=== PATIENT | female | born 1995 | race American Indian/Alaskan Native ===

== ENCOUNTER 2017-10-27 | Emergency (ER) | payer SELFPAY ==
[2017-10-27 01:48] VITALS: BP 113/74
[2017-10-27] MEDS ORDERED: TYLENOL #3 PO ONE (04:18)
[2017-10-27 05:01] LABS: Amorphous Crystals,Urine 2+; Bilirubin,Urine NEG (Negative); Blood,Urine NEG (Negative); Color,Urine Yellow (Yellow); Mucus,Urine 1+ /HPF; Nitrite,Urine NEG (Negative); Protein,Urine <15 mg/dL mg/dL (Negative)
[2017-10-27 05:02] LABS: HCG Qualitative,Urine Negative (Negative)
[2017-10-27] MEDS ORDERED: DELTASONE PO ONE (05:28)
--- NOTE | 2017-10-27 05:46 | Emergency Department Report ---
HPI - General Chief Complaint: Back Pain/Injury Time Seen by Provider: 10/27/17 04:18 - HPI HPI: Patient is a 22-year-old female with no prior medical history presents ED complaining of low back pain. Patient states she's had a history of chronic back pain ever since December 2016 where she got her epidural from her delivery of her child. Patient states intermittently she gets low back pain and spasms. Patient states that this episode of spasm started today while she was at work. She states she had significant work has the pain was unbearable. Patient states localized to right back region. Patient did not sustain any injuries or trauma to the back or fall. She denies suicidal seizures/nausea or vomiting this abdominal pain/chest pain/ dysuria or any other problems ED Past Medical Hx - Past Medical History Previous Medical History?: No - Surgical History Past Surgical History?: No - Social History Smoking Status: Current Every Day Smoker Substance Use Type: Alcohol - Medications Home Medications: Home Medications Medication Instructions Recorded Confirmed Last Taken Type Cyclobenzaprine [Flexeril] 10 mg PO QHS PRN #20 tablet 10/27/17 Unknown Rx Meloxicam [Mobic] 7.5 mg PO QDAY #20 tablet 10/27/17 Unknown Rx ED Review of Systems ROS: Stated complaint: BACK PAIN Other details as noted in HPI Constitutional: denies: chills, fever Eyes: denies: eye pain, eye discharge, vision change ENT: denies: ear pain, throat pain Respiratory: denies: cough, shortness of breath, wheezing Cardiovascular: denies: chest pain, palpitations Endocrine: no symptoms reported Gastrointestinal: denies: abdominal pain, nausea, diarrhea Genitourinary: denies: urgency, dysuria, discharge Musculoskeletal: myalgia. denies: back pain, joint swelling, arthralgia Skin: denies: rash, lesions Neurological: denies: headache, weakness, paresthesias Psychiatric: denies: anxiety, depression Hematological/Lymphatic: denies: easy bleeding, easy bruising Physical Exam - Physical Exam Vital Signs: Vital Signs 10/27/17 01:43 Temperature 97.8 F Pulse Rate 77 Respiratory 18 Rate Blood Pressure 113/74 O2 Sat by Pulse 99 Oximetry Physical Exam: GENERAL: Alert and oriented x3, no apparent distress, Normal Gait, atraumatic. HEAD: Head is normocephalic and a-traumatic. NECK: Supple. Non edematous, No carotid bruits. No lymphadenopathy or thyromegaly. No C-spine tenderness LUNGS: Symetrical with respiration, No wheezing, no rales or crackles, CTAB. HEART: S1, S2 present, regular rate and rhythm without murmur, no rubs, no gallops. Non tender to palpation BACK: Full range of motion, no spinal tenderness, nontender to palpation. EXTREMITIES/MUSCULOSKELETAL: No cyanosis, clubbing, rash, lesions or edema. Full ROM bilaterally. UE/LE Pulses 2+ bilaterally. LE and UE 5+ strength bilaterally, straight leg raise negative bilaterally NEUROLOGIC: The patient is cooperative with no focal neurologic deficits. SKIN: Warm and dry, No lesions, No ulceration or induration present. ED Course Vital Signs 10/27/17 01:43 Temperature 97.8 F Pulse Rate 77 Respiratory 18 Rate Blood Pressure 113/74 O2 Sat by Pulse 99 Oximetry ED Medical Decision Making - Medical Decision Making 38-year-old female presents to ED with myalgia / chronic back pain Urinalysis and urine tests done in ED. Urinalysis negative test negative Discussed this findings with the patient ED course: Patient received Tylenol 3 and 60 mg of prednisone in ED. Vital signs are normal patient is in no acute distress Discussed with patient follow-up with primary care physician. Discussed the patient and take medications as prescribed. Patient has no neurological deficit. Patient is alert and oriented 3 and understands all instructions given. Discussed drowsiness effect of Flexeril makes her drowsy and not to operate machinery while taking flexeril Critical care attestation.: If time is entered above; I have spent that time in minutes in the direct care of this critically ill patient, excluding procedure time. ED Disposition Clinical Impression: Spasm of muscle of lower back Chronic back pain Qualifiers: Back pain location: low back pain Back pain laterality: right Sciatica presence : without sciatica Qualified Code(s): M54.5 - Low back pain; G89.29 - Other chronic pain; G89.29 - Other chronic pain Disposition: TO HOME OR SELFCARE Is pt being admited?: No Does the pt Need Aspirin: No Condition: Stable Instructions: Trigger Point Pain (ED), Musculoskeletal Pain (ED), Lumbar Radiculopathy (ED) Additional Instructions: Make sure to follow up with the primary care physician as discussed. Take all your medications as you've been prescribed. If you have any worsening symptoms or develop new symptoms please return to ED immediately. Prescriptions: Cyclobenzaprine [Flexeril] 10 mg PO QHS PRN #20 tablet PRN Reason: Muscle Spasm Meloxicam [Mobic] 7.5 mg PO QDAY #20 tablet Referrals: [facility] [Outside] - 3-5 Days [facility] [Outside] - 3-5 Days Forms: Work/School Release Form(ED), Accompanied Note Time of Disposition: 05:55
== END 2017-10-27 06:35 | disposition home or self-care (01) ==
LOC: ED
DX: M54.5 Low back pain (principal); G89.29 Other chronic pain; M62.830 Muscle spasm of back; F17.200 Nicotine dependence, unspecified, uncomplicated
CPT/HCPCS: 81001; 81025; 99283; J7512